=== PATIENT | male | born 1970 | race Caucasian/White ===

== ENCOUNTER 2016-12-10 16:53 | Emergency (ER) | payer BC, OTHER ==
[2016-12-10 17:22] VITALS: BP 156/93
--- NOTE | 2016-12-10 18:31 | ED ---
Allergic Reaction/Systemic - HPI Summary HPI Summary: Patient presents with hives and eye irritation and swelling for five days. He works with insulation and originally thought it was due to his work, but he was also taking a 7 day dose of clindamycin for a sinus infection that was unresponsive to a Z-pack. He finished the clindamycin 3 days ago and his symptoms have continued. He denies difficulty breathing, nausea or abdominal pain, or lightheadedness. He has been able to continue with his regular activities but his eyes have peeled from the swelling and irritation. He denies vision changes, fever, exposure to new soaps, detergents, plants or foods. - History of Current Complaint Chief Complaint: EDAllergicReaction Time Seen by Provider: 12/10/16 17:38 Hx Obtained From: Patient, Family/It Programmer Analyst Onset/Duration: Gradual Onset, Started days ago - 5 Timing: Constant Severity Initially: Mild Severity Currently: Mild Pain Intensity: 0 Character: Hives - mild Aggravating Factor(s): Heat Alleviating Factor(s): Cold Associated Signs And Symptoms: Positive: Negative - Related Hx Possible Reaction To: Environmental Exposure - Allergies/Home Medications Allergies/Adverse Reactions: Allergies Allergy/AdvReac Type Severity Reaction Status Date / Time No Known Allergies Allergy Verified 07/28/14 18:48 PMH/Surg Hx/FS Hx/Imm Hx Previously Healthy: Yes Endocrine/Hematology History: Denies: Hx Diabetes, Hx Thyroid Disease Cardiovascular History: Denies: Hx Hypertension Respiratory History: Denies: Hx Asthma, Hx Chronic Obstructive Pulmonary Disease (COPD) GI History: Denies: Hx Ulcer - Immunization History Date of Tetanus Vaccine: unknown Infectious Disease History: Yes Infectious Disease History: Denies: Hx Hepatitis, Hx Human Immunodeficiency Virus (HIV), Traveled Outside the in Last 30 Days - Family History Known Family History: Positive: None - Social History Occupation: Employed Full-time Lives: With Family Alcohol Use: Occasionally Substance Use Type: Reports: None Smoking Status (MU): Never Smoked Tobacco Review of Systems Negative: Edema Positive: Other - mild hives on bilateral arms and chest swelling and mild erythema around bilateral eyes. Negative: Bruising Negative: Weakness All Other Systems Reviewed And Are Negative: Yes Physical Exam Triage Information Reviewed: Yes Vital Signs On Initial Exam: Initial Vitals Temp Pulse Resp BP Pulse Ox 98.5 F 64 17 156/93 98 12/10/16 17:19 12/10/16 17:19 12/10/16 17:19 12/10/16 17:19 12/10/16 17:19 Vital Signs Reviewed: Yes Appearance: Positive: Well-Appearing, No Pain Distress, Obese Skin: Positive: Warm, Skin Color Reflects Adequate Perfusion, Dry, Soft, Erythema @ - bilateral eyes with mild swelling; diffuse mild hives on bilateral arms and chest Head/Face: Positive: Normal Head/Face Inspection Eyes: Positive: EOMI, TAMMIE, Conjunctiva Clear ENT: Positive: Hearing grossly normal, Pharynx normal, TMs normal. Negative: Pharyngeal erythema, Tonsillar swelling, Trismus, Muffled/hoarse voice Neck: Positive: Supple, Nontender, No Lymphadenopathy Respiratory/Lung Sounds: Positive: Clear to Auscultation, Breath Sounds Present Cardiovascular: Positive: RRR Musculoskeletal: Negative: Edema Left, Edema Right Neurological: Positive: Sensory/Motor Intact, Alert, Oriented to Person Place, Time, NV Bundle Intact Distally, Normal Gait Psychiatric: Positive: Affect/Mood Appropriate AVPU Assessment: Alert Diagnostics - Vital Signs Vital Signs Temp Pulse Resp BP Pulse Ox 12/10/16 17:22 98.5 F 64 17 156/93 98 12/10/16 17:19 98.5 F 64 17 156/93 98 - Laboratory Lab Statement: Any lab studies that have been ordered have been reviewed, and results considered in the medical decision making process. Allergic Reaction Course/Dx - Diagnoses Differential Diagnosis/HQI/PQRI: Positive: Airway Obstruction, Anaphylaxis, Angioedema, Erythema Nodosum, Local Allergic Reaction, Vogel-Johnsons Syndrome , Urticaria Provider Diagnoses: Allergic reaction Discharge - Discharge Plan Condition: Stable Disposition: HOME Patient Education Materials: Antibiotic Medication Allergy (ED) Referrals: Gualberto MCKNIGHT,Tien Winston [Primary Care Provider] - Additional Instructions: Please use benadryl 50mg every 4 hours for the next 24 hours. You can use Zyrtec in the daytime if the benadryl makes you too drowsy. Apply cool compresses to your eyes to reduce swelling and pain. Follow-up with your primary care provider as needed. Return to the emergency department if symptoms worsen.
== END 2016-12-10 18:44 | disposition home or self-care (01) ==
LOC: ED 16:53
DX: T78.40XA Allergy, unspecified, initial encounter (principal); L50.9 Urticaria, unspecified; X58.XXXA Exposure to other specified factors, initial encounter
CPT/HCPCS: 99282